=== PATIENT | female | born 1995 | race Caucasian/White ===

== ENCOUNTER 2016-09-12 23:37 | Emergency (ER) | payer OTHER ==
[~2016-09-12] VITALS: Ht 162.6 cm; Wt 93.0 kg
[~2016-09-12 23:37] MED LIST: FLUO40CA12 PO; PRI20 PO
[2016-09-12 23:53] VITALS: BP 127/81; PULSE 70; RESP 18; O2SAT 99
--- NOTE | 2016-09-13 00:18 | ED.REPORT ---
HPI-Extremity Problem Lower Date of Service Sep 13, 2016 ED Provider: Dr. Zee 21 y/o female with no pertinent hx presents to the ED complaining of left foot pain, onset 3 hours ago. The pt climbed up the kitchen counter to reach for something on the shelf. She jumped back down, landed on her left foot and experienced extreme pain immediately. She is able to ambulate but reports pain upon putting pressure on the foot. The pain is significantly worse at the ball of her left foot near the 3rd toe. Nursing Notes Stated Complaint: LEFT FOOT INJURY Chief Complaint: Extremity Trauma Nursing Notes Reviewed: Yes Allergies: Coded Allergies: Penicillins (Verified Allergy, Unknown, 05/03/14) ibuprofen (Verified Allergy, Unknown, 05/03/14) Miscellaneous Medications FLUoxetine-Expunged Drug, Do not Renew! (Prozac-Expunged Drug, Do not Renew!) 40 Mg Capsule 40 MG PO Omeprazole-Expunged Drug, Do Not Renew! (Omeprazole-Expunged Drug, Do Not Renew! ) 20 Mg Capcr 20 MG PO General Time Seen by MD: 00:18 Chief Complaint Foot injury left Hx Obtained From: Patient Arrived By: Walk-in Onset Occurred: 1 - 4 hours ago Symptom Duration: Since onset Location: : Foot left Quality: Painful Severity: Current: Moderate Severity: Maximum: Moderate Recent Healthcare: No recent doctor visit Similar Sx Previous: No Past Medical History Past Medical History GERD Reports: Depression Past Surgical History Reports: Appendectomy Family History Headaches Smoking History Never Smoker Social History Alcohol Use: Denies alcohol use Drug Use: Denies drug use Other Social History: Lives with parents Occupation lives with Mom and Dad senior in high school Ambulatory Status Independent Review of Systems Musculoskeletal: Reports: Extremity pain (LEFT FOOT) Complete sys rev & neg: except as marked. Physical Exam Initial Vital Signs Vital Signs (First) Date Time Temp Pulse Resp B/P Pulse Ox O2 Delivery O2 Flow Rate FiO2 09/12/16 23:53 35.8 70 18 127/81 99 Room Air Initial VS: Reviewed Head / Eyes: Atraumatic, Normocephalic Neck: Supple, Non-tender, Full range of motion Respiratory: Breath sounds normal, No respiratory distress Cardiovascular: Regular rate & rhythm, Heart sounds normal, Intact distal pulses Upper Extremities: Vascular intact, Neuro intact, No swelling, No tenderness Skin: Warm, Dry, No cyanosis Neurologic: Alert, Oriented, Nonfocal Lower Extremity / Pelvis / MS: Atraumatic, Full range of motion, No swelling, Non-tender, No erythema, No deformity, Neurologic intact, Vascular intact Ankle / Foot: Atraumatic, No deformity, Neurologic intact, Vascular intact Pulses intact. Tender along the 2nd and 3rd digit, distally. Instant cap refill General/Constitutional: Awake, Alert, Cooperative Interpretation & Diagnostics X-Ray Interpretation Xray Interpretation: Result: no fracture or dislocation X-Ray Ordered: Foot left Interpretation / Wet Read by: Wet read ED physician Re-Eval/Medical Decision Re-Evaluation/Progress : Time of Eval: 01:06 Patient Status: Condition improved Re-Evaluation/Progress Note: Rechecked pt. Discussed imaging results, diagnosis and plan to discharge. Pt understands and agrees with the plan. F/U instructions and RTER warning given. All questions addressed. Counseled Regarding: Diagnosis, Need for follow-up, When/why to return to ED Discharge & Departure Impression: Primary Impression: Sprain of left foot Encounter type: initial encounter Qualified Code: S93.602A - Unspecified sprain of left foot, initial encounter Disposition: Home Discharge Condition All VS Reviewed: Yes Condition: Stable Patient Instructions: Crutch Instructions (ED) Additional Instructions: Emergency Department evaluation included interview, examination and x-ray. No fracture of the foot is identified, we will try immobilization with a hard soled shoe and patches for comfort, may weight bear on the left foot when able to do so without pain. Ice the foot 3-4 times a day, keeping ice pack wrapped in a towel and removing after 15 minutes. Elevate foot when able May use Tylenol as needed for pain. Follow up with primary care in about one week. Thanks for trusting of with your care tonight Referrals: Miley Corley (PCP) Scribe Attestation Portions of this note were transcribed by Erin Veliz. I, , personally performed the history, physical exam and medical decision- making;I reviewed and confirmed the accuracy of the information in the transcribed note. Signed by Thomas Bernal. 09/13/16 01:33 copies to: Miley Corley Donald L MD Sep 13, 2016 00:18 Erin Veliz Sep 13, 2016 01:32
[2016-09-13 01:30] VITALS: BP 115/77; PULSE 64; RESP 16; O2SAT 97
--- NOTE | 2016-09-13 08:36 | DRSVH ---
PROCEDURE: X-RAY LEFT FOOT COMPLETE, MINIMUM THREE VIEWS ([id number]) INDICATIONS: fall TECHNIQUE: 3 views of the foot were acquired. COMPARISON: None. FINDINGS: Bones: No fractures or dislocations. No suspicious bony lesions. Soft tissues: No tibiotalar joint effusion. Achilles tendon appears normal. IMPRESSION: No displaced fracture seen. If there is continued pain, followup exam or additional pao ging such as MRI or CT could be performed for further assessment. Dictated by: Darrin Briggs [facility] Interpreted: Jillian Jacome MD on 09/13/2016 at 8:34 Transcribed by: BEATRICE on 09/13/2016 at 8:35 Approved by: Jillian Jacome MD, PhD on 09/13/2016 at 10:35
== END 2016-09-13 01:28 | disposition home or self-care (01) ==
LOC: SED 23:37
DX: S93.602A Unspecified sprain of left foot, initial encounter (principal); X50.9XXA Other and unspecified overexertion or strenuous movements or postures, initial encounter; Y93.89 Activity, other specified; Y92.010 Kitchen of single-family (private) house as the place of occurrence of the external cause; Y99.8 Other external cause status; K21.9 Gastro-esophageal reflux disease without esophagitis; Z88.0 Allergy status to penicillin; Z88.6 Allergy status to analgesic agent